=== PATIENT | male | born 1955 | race Caucasian/White ===

== ENCOUNTER → 2024-03-20 17:01 | Outpatient (BNVA) | payer MEDICARE, SELFPAY | PROVIDERS: Family Provider Family Medicine; Visit Provider Nurse Practitioner | DX: S62.614A Displaced fracture of proximal phalanx of right ring finger, initial encounter for closed fracture (principal); W19.XXXA Unspecified fall, initial encounter | CPT/HCPCS: 73130 ==

== ENCOUNTER 2024-10-19 12:06 | Outpatient (CLI) | payer MEDICARE, SELFPAY ==
--- NOTE | 2024-10-19 12:13 | XR_ITS ---
WS: [id number] Exam: XR chest 2V* [id number] Date/Time of Exam: 10/19/2024 12:32 PM Reason For Exam: Crackles in chest No priors. The lungs are hyperinflated and clear. Normal cardiomediastinal silhouette. Regional bony elements ar e intact. No pleural effusions. XR/XR chest 2V* [id number] IMPRESSION: 1. Pulmonary hyperinflation which might indicate obstructive lung disease. No a cute process.
== END 2024-10-19 12:07 | disposition home or self-care (01) ==
LOC: RAD 12:08
PROVIDERS: PCP Family Medicine; Visit Provider Family Medicine
DX: R09.89 Other specified symptoms and signs involving the circulatory and respiratory systems (principal); Z51.81 Encounter for therapeutic drug level monitoring; R73.09 Other abnormal glucose; I10 Essential (primary) hypertension; Z13.220 Encounter for screening for lipoid disorders; R35.0 Frequency of micturition; E53.8 Deficiency of other specified B group vitamins; J98.4 Other disorders of lung
CPT/HCPCS: 71046; 80053; 80061; 82607; 83036; 84153; 85025